=== PATIENT | female | born 1985 | race Caucasian/White ===

== ENCOUNTER 2019-11-25 15:12 | Emergency (ER) | payer OTHER ==
[~2019-11-25] VITALS: Ht 165.1 cm; Wt 72.6 kg
[~2019-11-25 15:12] MED LIST: IBUPROFEN 800800 M1 PO; ORTHO MICRONO0.35 MG OR; PRENATAL OR; PROVENTIL IH; TUCKS MEDICATE1 EAC1
[2019-11-25 16:16] LABS: ABSOLUTE NEUTROPHILS 3.9 thou/uL (1.4-8.2); BASOPHILS 0.6 % (0.0-2.0); EOSINOPHILS 2.7 % (0.0-3.0); HEMATOCRIT 44.9 % (37.0-47.0); HEMOGLOBIN 15.1 gm/dL (12.0-15.0); LYMPHOCYTES 28.9 % (24.0-44.0); MCH 32.7 pg (26.0-34.0); MCHC 33.7 g/dL (28.0-37.0); MCV 96.9 fL (80.0-100.0); MONOCYTES 4.8 % (1.0-8.0); PLATELET COUNT 147 thou/uL (150-400); RBC 4.64 mil/uL (4.20-5.00); RDW 13.5 % (10.5-14.5); WBC 6.2 thou/uL (4.0-11.0)
[2019-11-25] MEDS ORDERED: ELMIRON 100 MG100 M1 PO (16:40)
[2019-11-25] MEDS ORDERED: SINGULAIR 10 MG10 MG PO (16:42)
[2019-11-25] MEDS ORDERED: ZYRTEC-D TABLE1 EACH PO (16:42)
[2019-11-25 16:43] LABS: CALCIUM 9.4 mg/dL (8.5-10.1); CREATININE 0.7 mg/dL (0.6-1.0); POTASSIUM 3.6 mmol/L (3.5-5.1)
[2019-11-25 16:53] LABS: ALBUMIN 3.6 g/dL (3.4-5.0); TOTAL BILIRUBIN 0.6 mg/dL (0.2-1.0); TOTAL PROTEIN 7.3 g/dL (6.4-8.2)
[2019-11-25 18:05] LABS: URINE BILIRUBIN NEGATIVE (Negative); URINE BLOOD 1+ (Negative); URINE CLARITY CLEAR; URINE COLOR YELLOW; URINE GLUCOSE-RANDOM* NEGATIVE (Negative); URINE KETONES 2+ (Negative); URINE NITRITE-REFLEX NEGATIVE (Negative); URINE PROTEIN (DIPSTICK) NEGATIVE (Negative); URINE SPECIFIC GRAVITY 1.025 (1.005-1.035); URINE UROBILINOGEN 0.2 E.U./dl (0.2-1.0)
[2019-11-25 18:06] LABS: URINE LEUKOCYTES-REFLEX 1+ (Negative)
[2019-11-25 18:42] LABS: BACTERIA-REFLEX 1-9 Few /HPF (None Seen); CASTS None Seen /LPF (None Seen); CRYSTALS None Seen /LPF (None Seen); SQUAMOUS 4-10 Moderate /LPF (0-3); URINE RBC 3-10 Few /HPF (0-2); URINE WBC-REFLEX 0-5 Rare /HPF (0-5)
[2019-11-25] MEDS ORDERED: CARAFATE 1 GM TA1 G1 PO (18:42)
[2019-11-25] MEDS ORDERED: PEPCID40 MG PO (18:42)
[2019-11-25 18:57] VITALS: BP 98/73
--- NOTE | 2019-11-26 07:49 | EKG ---
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
== END 2019-11-25 18:57 | disposition home or self-care (01) ==
LOC: ER 15:12
PROVIDERS: Physician Assistant
DX: R10.13 Epigastric pain (principal); J45.909 Unspecified asthma, uncomplicated; F17.210 Nicotine dependence, cigarettes, uncomplicated; K21.9 Gastro-esophageal reflux disease without esophagitis; Z90.89 Acquired absence of other organs; Z79.899 Other long term (current) drug therapy; Z88.0 Allergy status to penicillin; Z88.2 Allergy status to sulfonamides

== ENCOUNTER 2019-11-29 09:57 | Emergency (ER) | payer OTHER ==
[~2019-11-29] VITALS: Ht 152.4 cm; Wt 71.2 kg
[~2019-11-29 09:57] MED LIST changes: +CARAFATE 1 GM TA1 G1 PO; +ELMIRON 100 MG100 M1 PO; +PEPCID40 MG PO; +SINGULAIR 10 MG10 MG PO; +ZYRTEC-D TABLE1 EACH PO
--- NOTE | 2019-11-29 11:40 | EKG ---
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
[2019-11-29 11:54] LABS: ABSOLUTE NEUTROPHILS 5.1 thou/uL (1.4-8.2); BASOPHILS 0.7 % (0.0-2.0); EOSINOPHILS 1.5 % (0.0-3.0); HEMATOCRIT 45.5 % (37.0-47.0); HEMOGLOBIN 15.9 gm/dL (12.0-15.0); LYMPHOCYTES 22.4 % (24.0-44.0); MCH 33.8 pg (26.0-34.0); MCHC 34.9 g/dL (28.0-37.0); MCV 97.1 fL (80.0-100.0); PLATELET COUNT 145 thou/uL (150-400); POLYS 69.4 % (36.0-66.0); RBC 4.69 mil/uL (4.20-5.00); WBC 7.3 thou/uL (4.0-11.0)
[2019-11-29 12:01] LABS: ANION GAP 12 mmol/L (7-16); BUN 9 mg/dL (7-18); CALCIUM 8.8 mg/dL (8.5-10.1); CHLORIDE 102 mmol/L (98-107); CO2 25 mmol/L (21-32); CREATININE 0.7 mg/dL (0.6-1.0); GLUCOSE 82 mg/dL (74-106); POTASSIUM 4.1 mmol/L (3.5-5.1); SODIUM 139 mmol/L (136-145)
[2019-11-29 12:11] LABS: ALBUMIN 3.7 g/dL (3.4-5.0); LIPASE 109 U/L (73-393); SGOT 43 U/L (15-37); SGPT 90 U/L (30-65); TOTAL BILIRUBIN 0.7 mg/dL (0.2-1.0); TOTAL PROTEIN 7.6 g/dL (6.4-8.2); TROPONIN-I <0.06 ng/mL (<0.06)
[2019-11-29 12:58] LABS: URINE BLOOD 1+ (Negative); URINE CLARITY CLEAR; URINE COLOR YELLOW; URINE GLUCOSE-RANDOM* NEGATIVE (Negative); URINE KETONES 3+ (Negative); URINE LEUKOCYTES-REFLEX NEGATIVE (Negative); URINE NITRITE-REFLEX NEGATIVE (Negative); URINE PROTEIN (DIPSTICK) NEGATIVE (Negative); URINE UROBILINOGEN 0.2 E.U./dl (0.2-1.0)
[2019-11-29 13:01] LABS: ICTOTEST (BILI CONFIRMATORY) Negative (Negative); URINE BILIRUBIN NEGATIVE (Negative)
[2019-11-29] MEDS ORDERED: VALIUM2 MG PO (13:28)
[2019-11-29] MEDS ORDERED: MECLIZINE HCL25 M1 PO (13:28)
[2019-11-29] MEDS ORDERED: PRILOSEC OTC20 MG PO (13:28)
[2019-11-29] MEDS ORDERED: ONDANSETRON ODT8 MG PO (13:28)
[2019-11-29 13:48] LABS: SQUAMOUS 4-10 Moderate /LPF (0-3)
[2019-11-29 13:49] LABS: BACTERIA-REFLEX 1-9 Few /HPF (None Seen); CASTS None Seen /LPF (None Seen); CRYSTALS None Seen /LPF (None Seen); URINE RBC 0-2 Rare /HPF (0-2); URINE WBC-REFLEX None Seen /HPF (0-5)
[2019-11-29 13:54] VITALS: BP 101/64
== END 2019-11-29 14:28 | disposition home or self-care (01) ==
LOC: ER 09:57
PROVIDERS: Emergency Medicine
DX: M94.0 Chondrocostal junction syndrome [Tietze] (principal); E86.0 Dehydration; K21.9 Gastro-esophageal reflux disease without esophagitis; K21.0 Gastro-esophageal reflux disease with esophagitis; N30.10 Interstitial cystitis (chronic) without hematuria; H81.10 Benign paroxysmal vertigo, unspecified ear; F17.210 Nicotine dependence, cigarettes, uncomplicated; J45.909 Unspecified asthma, uncomplicated; Z79.899 Other long term (current) drug therapy; Z88.0 Allergy status to penicillin; Z88.2 Allergy status to sulfonamides; Z88.8 Allergy status to other drugs, medicaments and biological substances

== ENCOUNTER 2019-12-02 01:52 | Emergency (ER) | payer OTHER ==
[~2019-12-02] VITALS: Ht 165.1 cm; Wt 71.2 kg
[~2019-12-02 01:52] MED LIST changes: +MECLIZINE HCL25 M1 PO; +ONDANSETRON ODT8 MG PO; +PRILOSEC OTC20 MG PO; +VALIUM2 MG PO
[2019-12-02 04:08] VITALS: BP 96/68
--- NOTE | 2019-12-02 16:06 | EKG ---
[facility] [place] [address] [place] [address] ELECTROCARDIOGRAM REPORT Name: MACY ORDONEZ Room #: DEP [facility]#: [id number] Admission: 12/02/19 Attend Phys: Discharge: 12/02/19 Date of : 87 Report #: [id number] THIS REPORT FOR: cc: [facility] - Clinic physician unknown [facility] - Clinic physician unknown Fer Huynh MD ~ THIS REPORT FOR: //name// [facility] ED Test Date: 2019-12-02 Test Time: 02:01:17 Pat Name: MACY ORDONEZ Department: Room: Gender: F [employer] Mixer: NICHOLAS CHONG : 1985 Requested By: Oskar Ivey Order Number: [id number] MD: Fer Huynh Measurements Intervals [place] Rate: 93 P: 66 CO: 150 QRS: 33 QRSD: 93 T: 18 QT: 361 QTc: 449 Interpretive Statements Sinus rhythm Borderline T abnormalities, anterior leads Compared to ECG 11/29/2019 10:02:04 T-wave abnormality now present Electronically Signed On 12-02-2019 16:06:04 CDT by Fer Huynh [email or web address] <ELECTRONICALLY SIGNED> By: Fer Huynh MD 12/02/19 1606 0 0 Fer Huynh MD /EPI
== END 2019-12-02 04:10 | disposition home or self-care (01) ==
LOC: ER 01:52
DX: R42 Dizziness and giddiness (principal); R00.2 Palpitations; R11.2 Nausea with vomiting, unspecified; J45.909 Unspecified asthma, uncomplicated; K21.9 Gastro-esophageal reflux disease without esophagitis; F17.210 Nicotine dependence, cigarettes, uncomplicated; Z90.89 Acquired absence of other organs; Z79.899 Other long term (current) drug therapy; Z88.1 Allergy status to other antibiotic agents; Z88.0 Allergy status to penicillin; Z88.2 Allergy status to sulfonamides